=== PATIENT | male | born 1985 | race Hispanic/Latino ===

== ENCOUNTER 2020-05-22 20:56 | Emergency (ER) | payer OTHER | END 2020-05-22 22:10 | disposition home or self-care (01) | LOC: M ED 20:56 | DX: B34.9 Viral infection, unspecified (principal) | CPT/HCPCS: 99283; U0002 ==

== ENCOUNTER 2021-02-12 13:56 | Emergency (ER) | payer OTHER ==
[~2021-02-12] VITALS: Ht 162.6 cm; Wt 79.9 kg
[2021-02-12] MEDS ORDERED: VALT1TAB PO (14:04)
[2021-02-12 16:28] VITALS: BP 127/78
== END 2021-02-12 16:29 | disposition home or self-care (01) ==
LOC: M ED 13:56
DX: Z11.52 Encounter for screening for COVID-19 (principal); J02.9 Acute pharyngitis, unspecified; B34.9 Viral infection, unspecified; Z79.899 Other long term (current) drug therapy
CPT/HCPCS: 87880; 99284; U0003